=== PATIENT | female | born 1955 | race Caucasian/White ===

== ENCOUNTER → 2017-10-06 16:08 | Outpatient (CLI) | payer OTHER, SELFPAY ==
--- NOTE | 2017-10-06 16:13 | DI.RAD.S_ITS ---
PROCEDURE: XR CHEST 2V INDICATIONS: SHORTNESS OF BREATH, CHEST PRESSURE TECHNIQUE: 2 views of the chest were acquired. COMPARISON: [facility], , CHEST 1 VIEW, 12/04/2016, 10:23. FINDINGS: Surgical changes and devices: None. Lungs and pleura: No pleural effusions or pneumothorax. Lungs are clear. Mediastinum: Mediastinal contours are normal. Heart size is normal. Bones and chest wall: No suspicious bony abnormalities. 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 Soft tissues appear unremarkable. IMPRESSION: 1. No acute cardiopulmonary abnormality. 2. Right humeral bone lesion, unchanged. Dictated by: Micheal Tejeda M.D. on 10/06/2017 at 16:40 Approved by: Micheal Tejeda M.D. on 10/06/2017 at 16:41
== END ==
PROVIDERS: PCP Nurse Practitioner Family; Visit Provider Registered Nurse
DX: R07.89 Other chest pain (principal)
CPT/HCPCS: 71046

== ENCOUNTER → 2018-07-26 17:15 | Outpatient (CLI) | payer OTHER, SELFPAY ==
--- NOTE | 2018-07-26 | DI.RAD.S_ITS ---
PROCEDURE: XR CERVICAL SPINE 2V OR 3V INDICATIONS: LEFT POSTERIOR NECK PAIN TECHNIQUE: 3 view(s) of the cervical spine were acquired. COMPARISON: None. FINDINGS: Bones: No fractures or dislocations to the C7 level. The lateral masses of C1 appear intact on the odontoid view. No suspicious bony lesions. There is moderate to severe degenerative disc disease at C3-C4, C4-C5, C5-C6 and C6-C7. Bilateral facet arthropathy is present, most pronounced at C2-C3 and C3-C4 left. Soft tissues: No prevertebral soft tissue swelling. IMPRESSION: Degenerative disc and facet disease. Dictated by: Radha Jhaveri M.D. on 07/27/2018 at 12:31 Approved by: Radha Jhaveri M.D. on 07/27/2018 at 12:34
== END ==
PROVIDERS: PCP Nurse Practitioner Family; Visit Provider Nurse Practitioner Family
DX: M50.31 Other cervical disc degeneration, high cervical region (principal); M47.812 Spondylosis without myelopathy or radiculopathy, cervical region
CPT/HCPCS: 72040

== ENCOUNTER → 2020-08-06 15:51 | Outpatient (CLI) | payer OTHER, SELFPAY | PROVIDERS: PCP Family Medicine; Referring Provider Physician Assistant; Visit Provider Physician Assistant | DX: M79.605 Pain in left leg (principal); M79.89 Other specified soft tissue disorders; Z53.20 Procedure and treatment not carried out because of patient's decision for unspecified reasons ==

== ENCOUNTER → 2023-03-12 07:52 | Outpatient (CLI) | payer OTHER, SELFPAY ==
--- NOTE | 2023-03-12 07:55 | DI.NM.S_ITS ---
PROCEDURE: NM EXERCISE TREADMILL NON NUC COMPARISON: None. INDICATIONS: Other fatigue FINDINGS: Patient exercised for 6 minutes and 27 seconds reaching 95% of maximum predicted heart rate and average exercise capacity (6.5METs, VALENTIN -5%). Borderline hypertensive response to exercise (resting BP 145/85mmHg, max BP 200/100mmHg). No ST changes and no ectopy during exercise or recovery. Non-diagnostic chest pain during early exercise that resolved with continued exercise. IMPRESSION: Low risk, normal treadmill ECG only stress test with average exercise tolerance. Borderline hypertensive response to exercise (resting BP 145/85mmHg, max BP 200/100mmHg). Non-diagnostic chest pain during early exercise that resolved with continued exercise. Dictated by: Jacob Rubin MD on 03/12/2023 at 16:11 Approved by: Jacob Rubin MD on 03/12/2023 at 16:14
== END ==
PROVIDERS: PCP Family Medicine; Referring Provider Family Medicine; Visit Provider Family Medicine
DX: R07.9 Chest pain, unspecified (principal); R53.83 Other fatigue
CPT/HCPCS: 93017

== ENCOUNTER → 2023-08-13 10:10 | Outpatient (CLI) | payer OTHER, SELFPAY ==
--- NOTE | 2023-08-13 | DI.RAD.S_ITS ---
Bone Density Report Name: BRENDA MORILLO Age: 67 Sex: Female Ethnicity: White Date of : 1955 Indication: postmenopausal; screening for osteoporosis; Referring Provider: AXEL THIBODEAUX Study: Bone densitometry was performed. Exam Date: August 13, 2023 Accession number: [id number] Bone Density: Region BMD T-score Z-score Classification AP Spine(L1-L4) 1.187 1.3 3.2 Normal Femoral Neck (Left) 0.661 -1.7 -0.1 Osteopenia Total Hip (Left) 0.887 -0.5 0.9 Normal Femoral Neck (Right) 0.717 -1.2 0.4 Osteopenia Total Hip (Right) 0.892 -0.4 0.9 Normal Total Hip Mean 0.890 -0.5 0.9 Normal World Health Organization criteria for BMD impression classify patients as: Normal (T-score at or above -1.0), Osteopenia (T-score between -1.0 and -2.5), or Osteoporosis (T-score at or below -2.5). 10-year Fracture Risk(1): Major Osteoporotic Fracture 8.8% Hip Fracture 1.1% Reported Risk Factors: [place] (), Neck BMD=0.661, BMI=36.3 (1) FRAX(R) Version 3.08. Fracture probability calculated for an untreated patient. Fracture probability may be lower if the patient has received treatment. Previous Exams: -- Region Exam Age BMD T-score BMD Change BMD Change Date g/cm2 vs Baseline vs Previous -- AP Spine (L1-L4) 08/13/2023 67 1.187 1.3 -0.095 (-7.4%)# -0.095 (-7.4%)# 11/03/2011 56 1.282 2.1 Total Hip(Left) 08/13/2023 67 0.887 -0.5 -0.109 (-10.9%)# -0.109 (-10.9%)# 11/03/2011 56 0.996 0.4 Total Hip(Right) 08/13/2023 67 0.892 -0.4 -0.018 (-1.9%)# -0.018 (-1.9%)# 11/03/2011 56 0.910 -0.3 -- *Denotes significance at 95% confidence level, LSC for AP Spine = 0.022 g/cm2, LSC for Total Hip = 0.027 g/cm2 # Denotes dissimilar scan types or analysis methods Impression: The patient has low bone mass, based on the Left Femoral Neck T-score. The patient has an estimated ten-year risk of hip fracture of 1.1% and an estimated ten-year risk of major fracture of 8.8%, based on the WHO FRAX algorithm. No significant bone loss was observed. Discussion: BONE DENSITY IS LOW AT ONE OR MORE SKELETAL SITES. This patient's lowest T-score is low at one or more skeletal sites. It meets the World Health Organization's (WHO) criteria for low bone mass (T-score between -1.0 and -2.5). The patient's 10-year risk of fracture as calculated by FRAX is less than the threshold where pharmacological therapy is recommended by the National Osteoporosis Foundation (NOF). However, all treatment decisions require clinical judgment and consideration of individual patient factors, including patient preferences, comorbidities, previous drug use, risk factors not captured in the FRAX model (e.g., frailty, falls, vitamin D deficiency, increased bone turnover, interval significant decline in bone density) and possible under or overestimation of fracture risk by FRAX. The patient should follow a healthful lifestyle (good nutrition with adequate calcium and vitamin D, and appropriate weight-bearing exercise). Follow-Up: Consider repeating this study in 2 to 3 years to reassess this patient's status, or sooner if there is some new clinical indication. Reported by: ANGEL RILEY M.D. on 08/13/2023 10:49:00 AM.
== END ==
LOC: RAD 10:11
PROVIDERS: PCP Family Medicine; Referring Provider Family Medicine; Visit Provider Family Medicine
DX: M85.852 Other specified disorders of bone density and structure, left thigh (principal); R93.7 Abnormal findings on diagnostic imaging of other parts of musculoskeletal system; Z78.0 Asymptomatic menopausal state
CPT/HCPCS: 77080